=== PATIENT | male | born 1985 | race Caucasian/White ===

== ENCOUNTER 2024-01-03 07:46 | Outpatient (OUT) | payer OTHER, SELFPAY ==
--- NOTE | 2024-01-03 08:52 | CT_ITS ---
The [address] [address] Patient Name: CHARLOTTE BALES MRN: [id number] date: 1985 Sex: M Assigned Patient Location: CT Current Patient Location: Accession/Order Number: [id number] Exam Date: 01/03/2024 08:45 Report Date: 01/04/2024 12:20 At the request of: VENITA VILLAGRAN Procedure: CT abdomen pelvis wo con CT ABDOMEN AND PELVIS WITHOUT CONTRAST HISTORY: Renal stones. COMPARISON: CT abdomen and pelvis 08/26/2021. METHOD: Dose reduction techniques were achieved by using automated exposure control and/or adjustment of mA and/or kV according to patient size and/or use of iterative reconstruction technique. FINDINGS: The lung bases are clear. The evaluation of solid organs is limited with no IV contrast. The evaluation for lymphadenopathy is very limited with no IV contrast. There is no intrahepatic biliary ductal dilatation. The spleen is normal in size. The adrenal glands are normal appearing. The liver is fatty. There are splenic calcifications. There are no renal stones or hydronephrosis. There are no bladder stones. There is no bowel wall thickening or obstruction. The appendix is normal appearing. There are prosthetic calcifications. The bones are stable with old spinal fractures. There are no acute bony abnormalities. CT/CT abdomen pelvis wo con IMPRESSION: No renal stones or hydronephrosis. Fatty liver. Electronically authenticated by: RANDA HALL Date: 01/04/2024 12:20
== END 2024-01-03 07:47 | disposition home or self-care (01) ==
PROVIDERS: Visit Provider Urology
DX: N20.0 Calculus of kidney (principal)
CPT/HCPCS: 74176